=== PATIENT | female | born 1965 | race African-American/Black ===

== ENCOUNTER 2017-10-24 12:57 | Day surgery (SDC) | payer OTHER ==
[2017-10-24] MEDS ORDERED: FENTAnyl 50 MCG/ML VIAL (15:59)
[2017-10-24] MEDS ORDERED: PROPOFOL 20 ML ×2 (15:59→17:10)
== END 2017-10-24 18:05 | disposition home or self-care (01) ==
LOC: GIL 12:57
DX: K21.9 Gastro-esophageal reflux disease without esophagitis (principal); Z12.11 Encounter for screening for malignant neoplasm of colon; K44.9 Diaphragmatic hernia without obstruction or gangrene; R10.13 Epigastric pain; D12.8 Benign neoplasm of rectum; Z87.891 Personal history of nicotine dependence; Z80.0 Family history of malignant neoplasm of digestive organs; E06.3 Autoimmune thyroiditis
CPT/HCPCS: 43239; 88305; 88312